=== PATIENT | male | born 1990 | race Caucasian/White ===

== ENCOUNTER 2017-11-29 21:12 | Emergency (ER) | payer OTHER ==
[~2017-11-29] VITALS: Ht 190.5 cm; Wt 100.0 kg
[2017-11-29] MEDS ORDERED: CLIN150C8 PO (23:33)
[2017-11-29] MEDS ORDERED: HYDR-3965 PO (23:33)
[2017-11-29 23:55] VITALS: BP 136/75
== END 2017-11-29 23:58 | disposition home or self-care (01) ==
LOC: ER 21:13
DX: K08.89 Other specified disorders of teeth and supporting structures (principal); Z88.0 Allergy status to penicillin; Z88.2 Allergy status to sulfonamides; Z79.899 Other long term (current) drug therapy
CPT/HCPCS: 99283

== ENCOUNTER 2018-05-23 18:19 | Emergency (ER) | payer OTHER ==
[~2018-05-23] VITALS: Ht 188 cm; Wt 105.0 kg
[~2018-05-23 18:19] MED LIST: CLIN150C8 PO
[2018-05-23 18:25] VITALS: BP 150/97
[2018-05-23] MEDS ORDERED: IBUP-1985 PO (18:47)
[2018-05-23] MEDS ORDERED: CLIN150C8 PO (18:47)
== END 2018-05-23 19:07 | disposition home or self-care (01) ==
LOC: ER 18:19
DX: K08.89 Other specified disorders of teeth and supporting structures (principal); Z88.0 Allergy status to penicillin; Z88.2 Allergy status to sulfonamides
CPT/HCPCS: 99283

== ENCOUNTER 2018-08-22 23:27 | Emergency (ER) | payer SELFPAY ==
[~2018-08-22] VITALS: Ht 190.5 cm; Wt 83.8 kg
[~2018-08-22 23:27] MED LIST changes: +IBUP-1985 PO
[2018-08-22 23:34] VITALS: BP 138/88
[2018-08-23] MEDS ORDERED: ONDA4TAB6 PO (00:07)
== END 2018-08-23 00:20 | disposition home or self-care (01) ==
LOC: ER 23:27
DX: E86.0 Dehydration (principal); Z88.0 Allergy status to penicillin; Z88.2 Allergy status to sulfonamides; Z79.2 Long term (current) use of antibiotics; Z79.899 Other long term (current) drug therapy
CPT/HCPCS: 99283

== ENCOUNTER 2019-01-12 20:25 | Emergency (ER) | payer MEDICAID ==
[~2019-01-12] VITALS: Ht 188 cm; Wt 85.0 kg
[~2019-01-12 20:25] MED LIST changes: +ONDA4TAB6 PO
[2019-01-12 20:28] VITALS: BP 150/92
[2019-01-12] MEDS ORDERED: AZIT250T PO (20:56)
== END 2019-01-12 21:17 | disposition home or self-care (01) ==
LOC: ER 20:25
DX: J20.9 Acute bronchitis, unspecified (principal); F17.200 Nicotine dependence, unspecified, uncomplicated; Z88.0 Allergy status to penicillin; Z88.2 Allergy status to sulfonamides; Z79.899 Other long term (current) drug therapy
CPT/HCPCS: 99283

== ENCOUNTER 2020-11-14 15:24 | Emergency (ER) | payer MEDICAID, OTHER ==
[~2020-11-14] VITALS: Ht 190.5 cm; Wt 103.6 kg
[~2020-11-14 15:24] MED LIST changes: +LIDOcaine 1% W/epiNEPHrine 1:100,000 20ml vial ONE
[2020-11-14 16:04] VITALS: BP 157/77
[2020-11-14] MEDS ORDERED: TETanus/Pertussis (Acell)/Diphther VAC/PF (Tdap-Adult) 0.5ml syringe IMVAC ONE (16:55)
== END 2020-11-14 17:52 | disposition home or self-care (01) ==
LOC: ER 15:25
DX: S61.012A Laceration without foreign body of left thumb without damage to nail, initial encounter (principal); Z88.0 Allergy status to penicillin; Z88.2 Allergy status to sulfonamides; Z79.2 Long term (current) use of antibiotics; Z79.899 Other long term (current) drug therapy; W45.8XXA Other foreign body or object entering through skin, initial encounter; Y93.89 Activity, other specified; Y92.89 Other specified places as the place of occurrence of the external cause; Y99.8 Other external cause status
CPT/HCPCS: 12001; 90471; 90715; 99283

== ENCOUNTER 2021-01-03 18:13 | Emergency (ER) | payer MEDICAID, OTHER ==
[~2021-01-03] VITALS: Ht 190.5 cm; Wt 84.8 kg
[~2021-01-03 18:13] MED LIST changes: -LIDOcaine 1% W/epiNEPHrine 1:100,000 20ml vial ONE
[2021-01-03 19:03] VITALS: BP 126/88
[2021-01-03 19:48] LABS: BASOPHILS % (AUTO) 0.4 % (0-1); EOSINOPHILS # (AUTO) 0.2 X10'3 (0-0.9); EOSINOPHILS % (AUTO) 2.6 % (0-6); HEMATOCRIT 51.1 % (42.0-52.0); HEMOGLOBIN 16.7 g/dl (14.0-17.9); LYMPHOCYTES # (AUTO) 2.3 X10'3 (1.1-4.8); LYMPHOCYTES % (AUTO) 25.7 % (21-51); MEAN CORPUSCULAR HGB CONC 32.7 g/dL (33.0-36.5); MEAN CORPUSCULAR VOLUME 88.5 FL (78-98); MEAN PLATELET VOLUME 10.2 FL (7.4-10.4); MONOCYTES # (AUTO) 0.5 X10'3 (0-0.9); MONOCYTES % (AUTO) 6.2 % (2-12); NEUTROPHILS # (AUTO) 5.7 X10'3 (1.8-7.7); NEUTROPHILS % (AUTO) 65.1 % (42-75); PLATELET COUNT 166 X10'3 (140-440); RED BLOOD COUNT 5.78 X10'6 (4.70-6.10); RED CELL DISTRIBUTION WIDTH 13.5 % (11.5-14.5); WHITE BLOOD COUNT 8.8 X10'3 (4.5-11.0)
[2021-01-03 19:51] LABS: CLARITY,URINE CLEAR (Clear); COLOR,URINE YELLOW (Yellow); GLUCOSE, URINE NEGATIVE (Neg); KETONES,URINE NEGATIVE (Neg); LEUKOCYTE ESTERASE ,URINE NEGATIVE (Neg); NITRITES, URINE NEGATIVE (Neg); OCCULT BLOOD,URINE NEGATIVE (Neg); PROTEIN,URINE NEGATIVE (Neg)
[2021-01-03 19:55] LABS: UA COLLECTION TYPE CLN CATCH MIDSTREAM
[2021-01-03 20:07] LABS: ALANINE AMINOTRANSFERASE 42 U/L (12-78); ALBUMIN 4.5 G/DL (3.4-5.0); ALBUMIN/GLOBULIN RATIO 1.2 (1.1-1.5); ALKALINE PHOSPHATASE 70 IU/L (46-116); ANION GAP 12 (8-16); ASPARTATE AMINO TRANSFERASE 18 U/L (10-37); BILIRUBIN,TOTAL 0.5 MG/DL (0.1-1.0); BLOOD UREA NITROGEN 17 MG/DL (7-18); BUN/CREATININE RATIO 13.4 (5.4-32.0); CALCIUM 9.5 MG/DL (8.5-10.1); CHLORIDE 106 MMOL/L (99-107); CREATININE 1.27 MG/DL (0.60-1.10); GLUCOSE 92 MG/DL (70-104); LIPASE 93 U/L (73-393); POTASSIUM 4.3 MMOL/L (3.5-5.1); SODIUM 144 MMOL/L (135-145); TOTAL CARBON DIOXIDE 26.2 MMOL/L (24-32); TOTAL PROTEIN 8.3 G/DL (6.4-8.2); eGFR 66 ML/MIN
== END 2021-01-04 04:11 | disposition home or self-care (01) ==
LOC: ER 18:13
DX: B34.9 Viral infection, unspecified (principal); Z20.822 Contact with and (suspected) exposure to COVID-19; K52.9 Noninfective gastroenteritis and colitis, unspecified; Z88.0 Allergy status to penicillin; Z88.2 Allergy status to sulfonamides; Z79.2 Long term (current) use of antibiotics; Z79.899 Other long term (current) drug therapy
CPT/HCPCS: 36415; 80053; 81003; 83690; 85025; 87635; 99283; C9803

== ENCOUNTER 2021-07-10 09:50 | Emergency (ER) | payer MEDICAID ==
[~2021-07-10] VITALS: Ht 190.5 cm; Wt 108.0 kg
[2021-07-10 09:50] VITALS: BP 151/96
[2021-07-10] MEDS ORDERED: acetaminophen 325mg tablet PO ONE (10:05)
--- NOTE | 2021-07-10 11:10 | NUR ---
Pt given and understands d/c instructions. Ambulatory with a steady gait.
== END 2021-07-10 11:10 | disposition home or self-care (01) ==
LOC: ER 09:51
DX: U07.1 COVID-19 (principal); Z88.0 Allergy status to penicillin; Z88.2 Allergy status to sulfonamides; Z79.899 Other long term (current) drug therapy
CPT/HCPCS: 87635; 99283; C9803